=== PATIENT | female | born 1970 | race Caucasian/White ===

== ENCOUNTER 2017-02-24 07:52 | Outpatient (CLI) ==
[2017-02-24 08:30] LABS: ALBUMIN 3.5 g/dL (3.4-5.0); ALBUMIN/GLOBULIN RATIO 1.06; BILIRUBIN,DIRECT 0.12 mg/dL (0.00-0.30); BILIRUBIN,TOTAL 0.26 mg/dL (0.00-1.20); CALCIUM 9.3 mg/dL (8.2-10.2); CREATININE 0.75 mg/dL (0.60-1.30); PHOSPHORUS 3.6 mg/dL (2.5-4.9); TOTAL PROTEIN 6.8 g/dL (6.4-8.2)
== END 2017-02-24 07:53 | disposition home or self-care (01) ==
LOC: LAB 07:52
PROVIDERS: ATTEND Pain Medicine Interventional Pain Medicine
DX: Z51.81 Encounter for therapeutic drug level monitoring (principal); Z79.891 Long term (current) use of opiate analgesic; F19.20 Other psychoactive substance dependence, uncomplicated
CPT/HCPCS: 36415; 80053; 82248; 84100

== ENCOUNTER 2017-05-16 01:21 | Emergency (ER) ==
[2017-05-16 01:32] VITALS: BP 146/87; TEMP 98.8; BMI 32.0
[2017-05-16] MEDS ORDERED: AUGMENTIN 875-125 MG TAB PO STA (01:40)
--- NOTE | 2017-05-16 01:43 | ED.PDOC ---
General ED Provider: Dr. MIGUEL A SCHROEDER-ER Chief Complaint: Earache Stated Complaint: my nose is stuffy and i have an earache Time Seen by Physician: 01:30 Mode of Arrival: Walk-In Information Source: Patient Exam Limitations: No limitations [facility] and Triage Documentation Reviewed and Agree: Yes EENT Complaint Exam - Ear Complaint/Exam Onset/Duration: 24hrs Symptoms Are: Still present Timing: Constant Initial Severity: Mild Current Severity: Mild Character: Reports: Dull pain, Aching pain Aggravating: Reports: Tugging on ear Alleviating: Reports: None Associated Signs and Symptoms: Reports: Fever, Hearing loss, URI symptoms. Denies: Ear trauma, Ear swelling, Discharge, Bleeding, Sore throat, Headache, Rash, Pain to external ear, Pain to external face Related History: Reports: Similar Episode Ear Surgical History: None Vesicles to External Pinna: No Vesicles to Tragus: No TMJ Tenderness: None Mastoid Tenderness: None Tragal Tenderness: None External Canal: Normal Tympanic Membrane: Erythema, Dullness Differential Diagnoses: Otitis Media Review of Systems - Review Of Systems Constitutional: Reports: No symptoms Eyes: Reports: No symptoms Ears, Nose, Mouth, Throat: Reports: Ear pain Respiratory: Reports: No symptoms Cardiac: Reports: No symptoms GI: Reports: No symptoms : Reports: No symptoms Musculoskeletal: Reports: No symptoms Skin: Reports: No symptoms Neurological: Reports: No symptoms Endocrine: Reports: No symptoms, Unexplained weight gain Hematologic/Lymphatic: Reports: No symptoms All Other Systems: Reviewed and Negative Past Medical History - Past Medical History Previously Healthy: Yes Endocrine: Reports: Unknown Cardiovascular: Reports: Unknown Respiratory: Reports: Unknown Hematological: Reports: Unknown Gastrointestinal: Reports: Unknown Genitourinary: Reports: Unknown Neuro/Psych: Reports: Unknown Musculoskeletal: Reports: Unknown Cancer: Reports: Unknown Last Menstrual Period: 5 days ago - Surgical History General Surgical History: Reports: Unknown - Family History Family History: Reports: Unknown - Social History Smoking Status: Current every day smoker Hx Substance Use: No Alcohol Screening: None - Immunizations Tetanus Shot up to Date: Yes Physical Exam - Physical Exam Appearance: Well-appearing Pain Distress: Mild Eyes: SHERIF ENT: Ears normal, Nose normal, Erythema (left tm) Neck: Supple Respiratory: Airway patent, Breath sounds clear, Breath sounds equal, Respirations nonlabored Cardiovascular: RRR, Pulses normal, No rub, No murmur GI/: Soft, Nontender, No masses, Bowel sounds normal, No Organomegaly Musculoskeletal: Normal strength, ROM intact, No edema, No calf tenderness Skin: Warm, Dry, Normal color Neurological: Sensation intact, Motor intact, Reflexes intact, Cranial nerves intact, Alert, Oriented Psychiatric: Affect appropriate, Mood appropriate Critical Care Note - Critical Care Note Total Time (mins): 0 Course - Course Orders, Labs, Meds: Orders Category Date Time Status Amoxicillin/Potassium Clav [Augmentin 875-125 mg Tab] MEDS 05/16/17 01:40 Stat 1 tab PO ONCE STA Vital Signs: Temp Pulse Resp BP Pulse Ox 05/16/17 01:22 98.8 F 73 20 146/87 H 96 Departure - Departure Time of Disposition: 01:42 Disposition: HOME SELF-CARE Discharge Problem: Ear problem Instructions: Ear Infection (ED) Condition: Good Pt referred to PMD for follow-up: Yes Additional Instructions: augmentin 875mg bid x 7 days0--f/u with pcp next week to check ear Allergies/Adverse Reactions: Allergies No Known Allergies Allergy (Verified 05/16/17 01:30) Home Medications: Ambulatory Orders Motrin 800 mg PO TID PRN 02/02/14 Oxycodone HCl/Acetaminophen [Percocet 7.5-325 Mg Tablet] 1 each PO TID 03/14/15 Disposition Discussed With: Patient
== END 2017-05-16 01:55 | disposition home or self-care (01) ==
LOC: ED 01:21
DX: H66.90 Otitis media, unspecified, unspecified ear (principal)
CPT/HCPCS: 99282

== ENCOUNTER 2017-07-26 20:36 | Emergency (ER) ==
[2017-07-26 20:46] VITALS: BP 109/68; TEMP 100.9; BMI 32.9
--- NOTE | 2017-07-26 21:24 | ED.PDOC ---
General ED Provider: Dr. MIGUEL A SCHROEDER-ER Chief Complaint: Cough Stated Complaint: flu symptoms of cough, myalgias, fever , sore throat Time Seen by Physician: 21:21 Mode of Arrival: Walk-In Information Source: Patient Exam Limitations: No limitations Primary Care Provider: [facility]END[facility] Nursing and Triage Documentation Reviewed and Agree: Yes Reviewed sepsis parameters & appropriate labs ordered?: Yes System Inflammatory Response Syndrome: Not Applicable Sepsis Protocol: For patient's 13 years and over: Temp is 96.8 and below OR 101 and greater Pulse >90 BPM Resp >20/minute Acutely Altered Mental Status Are patient's symptoms suggestive of a new infection, such as: -Pneumonia -Skin, Soft Tissue -Endocarditis -UTI -Bone, Joint Infection -Implantable Device -Acute Abdominal Infection -Wound Infection -Meningitis -Blood Stream Catheter Infection -Unknown Respiratory Complaint Exam - Respiratory Complaint/Exam Onset/Duration: 24 hrs Symptoms Are: Still present Timing: Intermittent Initial Severity: Mild Current Severity: Mild Location: Nose, Chest Character: Reports: Productive cough Aggravating: Reports: URI Alleviating: Reports: None Associated Signs and Symptoms: Reports: Fever, Chills, URI, Nasal congestion, Sore throat. Denies: Rapid breathing, Dyspnea, Chest pain, Pleuritic chest pain , Wheezing, Hemoptysis, Dizziness, Calf pain, Calf swelling, Edema, Hoarseness, Sinus discomfort, Vomiting, Weight loss, Increased thirst, Increased appetite Related History: Reports: Similar episode History of Healthcare-Acquired Pneumonia: No Home Oxygen Use: No Recent Stress Test: No Recent Echo/LV Function: No Current Antibiotic Use: No Current Asthma Medication Use: No Respiratory Distress: None Inadequate Respiratory Effort: No Dysphagia Present: No Stridor Present: No Accessory Muscle Use: No Retractions: Not Present Diminished Breath Sounds: No Sinus Tenderness: None Grunting Respirations: No Kussmaul Respirations: No Differential Diagnoses: Bronchitis, URI, Influenza Review of Systems - Review Of Systems Constitutional: Reports: Chills, Fever Eyes: Reports: No symptoms Ears, Nose, Mouth, Throat: Reports: Nose discharge Respiratory: Reports: Cough. Denies: Short of air Cardiac: Reports: No symptoms GI: Reports: No symptoms : Reports: No symptoms Musculoskeletal: Reports: No symptoms Skin: Reports: No symptoms Neurological: Reports: No symptoms Endocrine: Reports: No symptoms Hematologic/Lymphatic: Reports: No symptoms All Other Systems: Reviewed and Negative Past Medical History - Past Medical History Previously Healthy: Yes Endocrine: Reports: Unknown Cardiovascular: Reports: Unknown Respiratory: Reports: Unknown Hematological: Reports: Unknown Gastrointestinal: Reports: Unknown Genitourinary: Reports: Unknown Neuro/Psych: Reports: Unknown Musculoskeletal: Reports: Unknown Cancer: Reports: Unknown Last Menstrual Period: 07/04/17 - Surgical History General Surgical History: Reports: Unknown - Family History Family History: Reports: Unknown - Social History Smoking Status: Current every day smoker Hx Substance Use: No Alcohol Screening: None Lives: With family - Immunizations Tetanus Shot up to Date: No (unsure) Physical Exam - Physical Exam Appearance: Well-appearing, No pain distress, Well-nourished Eyes: SHERIF, EOMI, Conjunctiva clear ENT: Rhinorrhea Neck: Supple Respiratory: Airway patent, Breath sounds clear, Breath sounds equal, Respirations nonlabored Cardiovascular: RRR, Pulses normal, No rub, No murmur GI/: Soft, Nontender, No masses, Bowel sounds normal, No Organomegaly Musculoskeletal: Normal strength, ROM intact, No edema, No calf tenderness Skin: Warm, Dry, Normal color Neurological: Sensation intact, Motor intact, Reflexes intact, Cranial nerves intact, Alert, Oriented Psychiatric: Affect appropriate, Mood appropriate Critical Care Note - Critical Care Note Total Time (mins): 0 Course - Course Orders, Labs, Meds: Lab Review 07/26/17 20:50 Influenza A (Rapid) Negative by naat Influenza B (Rapid) Negative by naat Orders Category Date Time Status FLU A & B MOLECULAR [FLU A/B MOLECULAR] Stat LAB 07/26/17 20:50 Completed MOLECULAR GROUP A STREP Stat LAB 07/26/17 20:50 Completed Vital Signs: Temp Pulse Resp BP Pulse Ox 07/26/17 20:37 100.9 F H 124 H 20 109/68 97 Departure - Departure Time of Disposition: 21:23 Disposition: HOME SELF-CARE Discharge Problem: Influenza, Bronchitis Instructions: Acute Bronchitis (ED) Condition: Good Pt referred to PMD for follow-up: Yes IPMP verified?: No Additional Instructions: tamiflu 75mg bid x 5 days--augmentin 875mg bid x 7 days--motrin, fluids==rest-- recheck in 72hrs if not improved Allergies/Adverse Reactions: Allergies No Known Allergies Allergy (Verified 07/26/17 20:44) Home Medications: Ambulatory Orders Motrin 800 mg PO TID PRN 02/02/14 Oxycodone HCl/Acetaminophen [Percocet 7.5-325 Mg Tablet] 1 each PO QID PRN 03/14 Disposition Discussed With: Patient, Family
== END 2017-07-26 21:29 | disposition home or self-care (01) ==
LOC: ED 20:36
DX: J11.1 Influenza due to unidentified influenza virus with other respiratory manifestations (principal); J40 Bronchitis, not specified as acute or chronic; F17.210 Nicotine dependence, cigarettes, uncomplicated
CPT/HCPCS: 87502; 87651; 99283

== ENCOUNTER 2017-08-21 12:06 | Outpatient (CLI) ==
--- NOTE | 2017-08-21 14:30 | DI ---
Exam: Lumbar spine three-view. HISTORY: Lumbar disc displacement. Findings: Three images of the lumbar spine demonstrate five [id number] lumbarized vertebrae with multilevel mild to moderate degenerative disease greatest at L1-2 and L5-S1. There is 2 mm retrolis thesis of L5 on S1. Atherosclerotic calcifications are noted. The bowel gas pattern is nondilated. Impressions: No compression fracture in the lumbar spine. Mild to moderate degenerative disease at L1-2 and L5-S1. 2 mm retrolisthesis of L5 on S1.
--- NOTE | 2017-08-22 11:10 | MRI ---
EXAM: Lumbar spine MRI without contrast. HISTORY: Lumbar disc displacement, spinal stenosis and degeneration. COMPARISON: Lumbar spine radiographs 08/21/2017 and lumbar spine MRI 01/05/2014. TECHNIQUE: Multiplanar, multisequence MR images were acquired lumbar spine without contrast. FINDINGS: Conus medullaris ends low at L2 and has normal signal intensity. Canal diameter is develo pmentally narrow due to congenitally short pedicles. Five non-rib bearing lumbar vertebra are presen t. As previously noted, there are 11 thoracic vertebra with bilateral ribs. The lumbar vertebra are n ormal in height and AP alignment. There is 1.5 mm retrolisthesis of L1 on L2 and 2 mm retrolisthesis of L5 on S1. The superior endplate of S1 is smaller than the inferior endplate of L5. Bone marrow s ignal is heterogeneous with mildly increased dark T1 and T2 marrow signal that may represent normal v ariation or early red marrow hyperplasia. This may be correlated with laboratory values. There are no destructive osseous lesions. There is irregular concavity of the endplates from T10-11 through L1 -2 and there is moderate disc space narrowing with disc desiccation at T11-12. At L1-2, there is ost eophytosis with moderate disc space narrowing, mild endplate irregularity with small chronic Schmorl' s nodes and disc desiccation. At L5-S1, there is a diffuse disc osteophyte complex that is asymmetri c to the right with moderate right lateral/far endplate osteophytes, right posterior and lateral disc space narrowing, mild endplate irregularity and moderate modic type1 endplate changes. Chronic Schm orl's nodes are present from T10 to L2. The partially visualized liver, spleen and left kidney are normal. A simple cyst is present in the r ight kidney. The gallbladder is distended without abnormal wall thickening. There are no paraverteb ral masses. T10-11: There is a minor posterior disc bulge that effaces the ventral thecal sac without central ca nal stenosis. Neural foramina are patent. T11-L1: The intervertebral disc is normal. L1-2: There is a mild disc bulge with marginal osteophytes that effaces the ventral thecal sac witho ut central canal stenosis. Neural foramina are patent. L2-3: The intervertebral disc is normal. Mild bilateral facet and ligamentum flavum hypertrophy is present. There is no central canal stenosis or foraminal stenosis. L3-4: There is a minor disc bulge that is asymmetric to the left which minimally narrows the inferio r neural foramen bilaterally, greater on the left. Mild bilateral hypertrophic facet arthropathy and ligamentum flavum hypertrophy and prominent dorsal epidural fat is present. These findings cause mi ld central canal stenosis. AP diameter of the thecal sac is 7.7 mm. L4-5: There is a mild disc bulge and mild to moderate bilateral hypertrophic facet arthropathy and l igamentum flavum hypertrophy. In this patient with congenitally short pedicles, this causes mild jluis tral canal stenosis and minor bilateral foraminal stenosis. AP diameter of the thecal sac is 7.7 mm. L5-S1: There is a diffuse disc osteophyte complex that is asymmetric to the right which narrows the inferior right neural foramen and encroaches on the exiting right L5 nerve. There is a stable 5 mm AP by 10 mm TX central disc protrusion that effaces the ventral thecal sac. Mild bilateral facet arthr opathy and ligamentum flavum hypertrophy is present. There is mild central canal stenosis and mild l eft and moderate right foraminal stenosis. AP diameter of the thecal sac is 8.3 mm. IMPRESSION: 1. No change mild lumbar degenerative spondylosis with moderate discogenic disease at L1-2 and L5-S1 . 2. Mild L3-4, L4-5 and L5-S1 central canal stenosis. 3. Stable small central disc protrusion L5-S1 and moderate right foraminal stenosis with encroachmen t on the right L5 nerve.
== END 2017-08-21 12:07 | disposition home or self-care (01) ==
LOC: RAD 12:06
PROVIDERS: ATTEND Pain Medicine Interventional Pain Medicine
DX: M51.26 Other intervertebral disc displacement, lumbar region (principal); M51.27 Other intervertebral disc displacement, lumbosacral region; M48.061 Spinal stenosis, lumbar region without neurogenic claudication; M51.36 Other intervertebral disc degeneration, lumbar region; M51.37 Other intervertebral disc degeneration, lumbosacral region; M81.0 Age-related osteoporosis without current pathological fracture; Z78.0 Asymptomatic menopausal state

== ENCOUNTER 2017-08-25 10:33 | Outpatient (CLI) ==
--- NOTE | 2017-08-25 12:12 | DEXA ---
EXAM: Bone density HISTORY: Concern for osteoporosis with family history of osteoporosis and personal history of arthri tis COMPARISON: None TECHNIQUE: Digital images of the thoracolumbar spine and hips were provided and calculation of bone density was obtained. FINDINGS: Digital images demonstrate no compression deformities of the thoracolumbar spine. DEXA scan of the lumbar spine is of good quality. The total BMD equals 1.314 grams per square centimeter. T-score is 1.1 and Z-score of 0.6. DEXA of the hips was performed and of good quality. Total bone marrow density of 0.913 grams per square centimeter. T score is - 0.8 w and Z-score of - 0.8. IMPRESSION: Bone density of the hip and lumbar spine demonstrate normal bone density by WHO criteria . FRAX calculation demonstrates 10-year major osteoporotic fracture risk of 3.1% and hip fracture risk of 0.4% T score greater than -1 is normal T score -1 to -2.5 is osteopenia T score less than - 2.5 is osteoporosis
== END 2017-08-25 10:34 | disposition home or self-care (01) ==
LOC: RAD 10:33
PROVIDERS: ATTEND Pain Medicine Interventional Pain Medicine
DX: M51.26 Other intervertebral disc displacement, lumbar region (principal); M51.27 Other intervertebral disc displacement, lumbosacral region; M48.061 Spinal stenosis, lumbar region without neurogenic claudication; M51.36 Other intervertebral disc degeneration, lumbar region; M51.37 Other intervertebral disc degeneration, lumbosacral region; M81.0 Age-related osteoporosis without current pathological fracture; Z78.0 Asymptomatic menopausal state

== ENCOUNTER 2017-10-16 10:31 | Outpatient (CLI) ==
--- NOTE | 2017-10-16 12:22 | US ---
EXAM: Renal ultrasound HISTORY: Renal cyst COMPARISON: MRI lumbar spine 08/21/2017 TECHNIQUE: Sonographic evaluation of the kidneys was performed with limited Doppler evaluation. FINDINGS: The right kidney measures 10.6 x 4.7 x 3.9 cm with renal cortical thickness of 1.2 cm. Th ere is normal echogenicity and color Doppler flow. No stone or hydronephrosis is identified. There is a complex hypoechoic cyst measuring 1.2 x 1.1 x 1.0 cm. The left kidney measures 10.7 x 5.7 x 5.1 cm with renal cortical thickness of 1.4 cm. There is nancy l echogenicity and color Doppler flow. No stone or hydronephrosis is identified. Limited evaluation of the urinary bladder is unremarkable. IMPRESSION: 1. Complex cyst in the right kidney with thin septation. 2. No additional sonographic abnormality is identified.
== END 2017-10-16 10:32 | disposition home or self-care (01) ==
LOC: RAD 10:31
PROVIDERS: ATTEND Emergency Medicine
DX: N28.1 Cyst of kidney, acquired (principal); E78.1 Pure hyperglyceridemia; E66.9 Obesity, unspecified; E53.8 Deficiency of other specified B group vitamins; E78.5 Hyperlipidemia, unspecified; M47.26 Other spondylosis with radiculopathy, lumbar region
CPT/HCPCS: 36415; 76770; 80061; 82306; 82607; 83036; 84443; 85025

== ENCOUNTER 2017-12-07 16:06 | Outpatient (CLI) | END 2017-12-07 16:07 | disposition home or self-care (01) | LOC: RHC-LAB 16:06 | PROVIDERS: ATTEND Emergency Medicine | DX: N61.1 Abscess of the breast and nipple (principal) | CPT/HCPCS: 87070 ==

== ENCOUNTER 2018-01-18 09:10 | Outpatient (CLI) | END 2018-01-18 09:11 | disposition home or self-care (01) | LOC: RHC-LAB 09:10 | PROVIDERS: ATTEND Emergency Medicine | DX: E78.5 Hyperlipidemia, unspecified (principal); E66.9 Obesity, unspecified; Z87.19 Personal history of other diseases of the digestive system; B18.2 Chronic viral hepatitis C | CPT/HCPCS: 36415; 80053; 80061; 84443; 85025; 87522 ==

== ENCOUNTER 2018-01-25 15:10 | Outpatient (CLI) | END 2018-01-25 15:11 | disposition home or self-care (01) | LOC: LAB 15:10 | PROVIDERS: ATTEND Urology | DX: R82.71 Bacteriuria (principal) | CPT/HCPCS: 87086; 87186 ==

== ENCOUNTER 2018-03-29 14:09 | Outpatient (CLI) | END 2018-03-29 14:10 | disposition home or self-care (01) | LOC: LAB 14:09 | PROVIDERS: ATTEND Urology | DX: N39.0 Urinary tract infection, site not specified (principal) | CPT/HCPCS: 81001; 87086 ==

== ENCOUNTER 2018-10-10 03:09 | Emergency (ER) ==
[2018-10-10 03:11] VITALS: BP 134/78; TEMP 97.6; BMI 29.2
[2018-10-10] MEDS ORDERED: LIDOCAINE HCL 1% SDV IM STA (03:12)
[2018-10-10] MEDS ORDERED: TORADOL IM STA (03:12)
[2018-10-10] MEDS ORDERED: ROCEPHIN IM STA (03:12)
[2018-10-10] MEDS ORDERED: DECADRON 4 MG/ML SDV IM STA (03:12)
--- NOTE | 2018-10-10 03:16 | ED.PDOC ---
General ED Provider: Dr. MIGUEL A SCHROEDER-ER Chief Complaint: Headache Stated Complaint: [place] on [place] and i developed sinus congestion and pressure Time Seen by Physician: 03:15 Mode of Arrival: Walk-In Information Source: Patient Exam Limitations: No limitations Primary Care Provider: HUI DUNLAP Nursing and Triage Documentation Reviewed and Agree: Yes Does patient meet sepsis criteria?: No System Inflammatory Response Syndrome: Not Applicable Sepsis Protocol: For patient's 13 years and over: Temp is 96.8 and below OR 101 and greater Pulse >90 BPM Resp >20/minute Acutely Altered Mental Status Are patient's symptoms suggestive of a new infection, such as: -Pneumonia -Skin, Soft Tissue -Endocarditis -UTI -Bone, Joint Infection -Implantable Device -Acute Abdominal Infection -Wound Infection -Meningitis -Blood Stream Catheter Infection -Unknown Respiratory Complaint Exam - Respiratory Complaint/Exam Onset/Duration: 24 hrs Symptoms Are: Still present Timing: Constant Initial Severity: Mild Current Severity: Moderate Location: Nose Character: Reports: Productive cough Aggravating: Reports: URI Associated Signs and Symptoms: Reports: URI, Nasal congestion, Sinus discomfort , Sore throat Home Oxygen Use: No Recent Stress Test: No Recent Echo/LV Function: No Current Antibiotic Use: No Current Asthma Medication Use: No Respiratory Distress: None Inadequate Respiratory Effort: No Dysphagia Present: No Stridor Present: No JVD Present: No Accessory Muscle Use: No Retractions: Not Present Diminished Breath Sounds: No Sinus Tenderness: Frontal, Ethmoid Grunting Respirations: No Kussmaul Respirations: No Differential Diagnoses: Sinusitis, URI Review of Systems - Review Of Systems Constitutional: Reports: No symptoms Eyes: Reports: No symptoms Ears, Nose, Mouth, Throat: Reports: Nose discharge Respiratory: Reports: No symptoms Cardiac: Reports: No symptoms GI: Reports: No symptoms : Reports: No symptoms Musculoskeletal: Reports: No symptoms Skin: Reports: No symptoms Neurological: Reports: No symptoms Endocrine: Reports: No symptoms Hematologic/Lymphatic: Reports: No symptoms All Other Systems: Reviewed and Negative Past Medical History - Past Medical History Previously Healthy: Yes Endocrine: Reports: Unknown Cardiovascular: Reports: Unknown Respiratory: Reports: Unknown Hematological: Reports: Unknown Gastrointestinal: Reports: Unknown Genitourinary: Reports: Unknown Neuro/Psych: Reports: Unknown Musculoskeletal: Reports: Unknown Cancer: Reports: Unknown Last Menstrual Period: 2 weeks - Surgical History General Surgical History: Reports: Unknown - Family History Family History: Reports: Unknown - Social History Smoking Status: Current every day smoker, Heavy tobacco smoker Hx Substance Use: No Alcohol Screening: None - Immunizations Tetanus Shot up to Date: Yes Physical Exam - Physical Exam Appearance: Well-appearing, No pain distress, Well-nourished Pain Distress: Mild Eyes: SHERIF, EOMI, Conjunctiva clear ENT: Rhinorrhea Neck: Supple Respiratory: Airway patent, Breath sounds clear, Breath sounds equal, Respirations nonlabored Cardiovascular: RRR GI/: Soft Musculoskeletal: Normal strength Skin: Warm, Dry, Normal color Neurological: Sensation intact, Motor intact, Reflexes intact, Cranial nerves intact, Alert, Oriented Psychiatric: Affect appropriate, Mood appropriate Interpretation - Radiology Interpretation Radiology Interpretation By: Radiologist Radiology Results: Positive Exam Interpreted: CT Scan Critical Care Note - Critical Care Note Total Time (mins): 0 Course - Course Orders, Labs, Meds: Orders Category Date Time Status Ceftriaxone Sodium [Rocephin] MEDS 10/10/18 03:12 Discontinued 1 gm IM ONCE STA Dexamethasone 4 mg/ml Inj [Decadron 4 mg/ml Sdv] MEDS 10/10/18 03:12 Discontinued 4 mg IM ONCE STA Ketorolac Tromethamine [Toradol] MEDS 10/10/18 03:12 Discontinued 60 mg IM ONCE STA Lidocaine HCl/Pf [Lidocaine HCl 1% Sdv] MEDS 10/10/18 03:12 Discontinued 2.1 ml IM ONCE STA CT HEAD W/O CONTRAST Stat RADS 10/10/18 03:[address] MAXILLOFACIAL W/O CONTRAST Stat RADS 10/10/18 03:11 Completed Medications Discontinued Medications Generic Name Dose Route Start Last Admin Trade Name Freq PRN Reason Stop Dose Admin Ceftriaxone Sodium 1 gm 10/10/18 03:12 10/10/18 03:32 Rocephin IM 10/10/18 03:13 1 gm ONCE STA Administration Dexamethasone Sodium Phosphate 4 mg 10/10/18 03:12 10/10/18 03:32 Decadron 4 Mg/Ml Sdv IM 10/10/18 03:13 4 mg ONCE STA Administration Ketorolac Tromethamine 60 mg 10/10/18 03:12 10/10/18 03:32 Toradol IM 10/10/18 03:13 60 mg ONCE STA Administration Lidocaine HCl 2.1 ml 10/10/18 03:12 10/10/18 03:32 Lidocaine Hcl 1% Sdv IM 10/10/18 03:13 2.1 ml ONCE STA Administration Vital Signs: Temp Pulse Resp BP Pulse Ox 10/10/18 03:09 97.6 F 83 16 134/78 96 Departure - Departure Time of Disposition: 03:56 Disposition: HOME SELF-CARE Discharge Problem: Sinusitis Qualifiers: Sinusitis location: unspecified location Chronicity: acute Recurrence: not specified as recurrent Qualified Code(s): J01.90 - Acute sinusitis, unspecified Instructions: Rhinosinusitis (ED) Condition: Good Pt referred to PMD for follow-up: Yes IPMP verified?: No Additional Instructions: augmentin 875mg bid x 10 days, medrol dose pack--flonase nasal srpay one puff each nostril bid ---f/u with pcp Allergies/Adverse Reactions: Allergies No Known Allergies Allergy (Verified 10/10/18 03:11) Home Medications: Ambulatory Orders Motrin 800 mg PO TID PRN 02/02/14 Oxycodone HCl/Acetaminophen [Percocet 7.5-325 Mg Tablet] 1 each PO QID PRN 03/14 Clonazepam [Klonopin] 0.5 mg PO QID 12/07/17 Lamotrigine [Lamictal] 100 mg PO DAILY 12/07/17 Sertraline HCl [Zoloft] 100 mg PO DAILY 12/07/17 Disposition Discussed With: Patient, Family
--- NOTE | 2018-10-10 03:36 | CT ---
EXAM: CT head without contrast 10/10/2018. Sagittal and coronal reformatted images obtained HISTORY: Headache COMPARISON: None. FINDINGS: There is no evidence of intracranial hemorrhage. The midline is maintained. There is no h ydrocephalus. No cerebellar tonsillar ectopia. Evaluation of the calvarium shows no fracture. Th e mastoid air cells are normally pneumatized. IMPRESSION: No acute intracranial abnormality. Right-sided sinusitis. Please refer to report of CT maxillofacial for further discussion.
--- NOTE | 2018-10-10 03:55 | CT ---
EXAM: CT maxillofacial without intravenous contrast 10/10/2018. Sagittal and coronal reformatted im ages obtained HISTORY: Sinus pain COMPARISON: 10/10/2018 FINDINGS: Mucosal thickening is present within the right frontal, ethmoidal, sphenoidal and maxillar y sinus. There is complete opacification of the right maxillary sinus. Occlusion of the right ostio meatal unit. Mild mucosal thickening extends into the left ethmoidal sinus. The remaining left sided paranasal si nuses are normally aerated. The facial bones appear intact. There is no evidence of fracture. IMPRESSION: Severe right-sided sinusitis. Mucosal thickening throughout the right sided paranasal s inuses. Complete opacification of the right maxillary sinus with occlusion of the right ostiomeatal unit. Additional details as above.
== END 2018-10-10 04:07 | disposition home or self-care (01) ==
LOC: ED 03:09
DX: R51 Headache (principal); R05 Cough; J06.9 Acute upper respiratory infection, unspecified; R09.81 Nasal congestion; J02.9 Acute pharyngitis, unspecified; R09.82 Postnasal drip; Z72.0 Tobacco use; J01.90 Acute sinusitis, unspecified
CPT/HCPCS: 96372; 99283

== ENCOUNTER 2018-10-25 08:25 | Outpatient (CLI) | END 2018-10-25 08:26 | disposition home or self-care (01) | LOC: LAB 08:25 | PROVIDERS: ATTEND Family Medicine | DX: J32.9 Chronic sinusitis, unspecified (principal); R21 Rash and other nonspecific skin eruption; E78.5 Hyperlipidemia, unspecified; E55.9 Vitamin D deficiency, unspecified; E53.8 Deficiency of other specified B group vitamins | CPT/HCPCS: 36415; 80053; 80061; 82306; 82607; 85025; 85651; 86038 ==

== ENCOUNTER 2018-11-15 11:11 | Outpatient (CLI) | END 2018-11-15 11:12 | disposition home or self-care (01) | LOC: LAB 11:11 | PROVIDERS: ATTEND Family Medicine | DX: E53.8 Deficiency of other specified B group vitamins (principal) | CPT/HCPCS: 36415; 83921 ==

== ENCOUNTER 2018-11-16 16:31 | Outpatient (CLI) | END 2018-11-16 16:32 | disposition home or self-care (01) | LOC: RHC-LAB 16:31 → FCC-LAB 16:32 | PROVIDERS: ATTEND Family Medicine | DX: R82.90 Unspecified abnormal findings in urine (principal) | CPT/HCPCS: 81001; 87086; 87186 ==